=== PATIENT | female | born 1950 | race Caucasian/White ===

== ENCOUNTER 2017-06-27 09:10 | Inpatient (IN) | payer OTHER ==
[2017-06-27] MEDS ORDERED: ASPIRIN 81 MG CHEWABLE TABLET ONE (10:40)
--- NOTE | 2017-06-27 11:00 | EKG ---
Test Date: 2017-06-27 Test Time: 09:55:59 Training And Development Project Leader: TANNER MEASUREMENT RESULTS: Intervals: Rate: 101 GA: 202 QRSD: 84 QT: 330 QTc: 427 Kane: P: 27 GA: 202 QRS: -57 T: 29 INTERPRETIVE STATEMENTS: Sinus tachycardia Left anterior fascicular block Inferior infarct, age undetermined Anterolateral infarct, age undetermined Abnormal ECG Compared to ECG 12/29/2014 08:50:45 Left anterior fascicular block now present Myocardial infarct finding now present Sinus rhythm no longer present Electronically Signed On 06-27-17 10:59:36 CDT by Paulo Barry
[2017-06-27 11:05] LABS: Urine Blood NEGATIVE (NEG); Urine Glucose 2+ (NEG); Urine Protein NEGATIVE (NEG); Urine pH 5.5 (5.0-7.0)
--- NOTE | 2017-06-27 11:09 | RAD REPORT ---
EXAM DESCRIPTION: RAD - Chest Pa And Lat (2 Views) - 06/27/2017 11:01 am CLINICAL HISTORY: Shortness of breath. COMPARISON: 05/08/2011 FINDINGS: The lungs are clear. The heart is upper limit of normal in size. No displaced fractures. IMPRESSION: No acute or concerning finding suspected.
[2017-06-27 11:17] LABS: Absolute Lymphocytes (CBC) 2.8 K/uL (0.7-4.9); Absolute Monocytes 0.7 K/uL (0.1-1.3); Absolute Neutrophil 5.9 K/uL (1.8-8.0); Basophils % 2.6 % (0-1.3); Eosinophils % 3.6 % (0-4.4); Lymphocytes % 27.7 % (15.3-44.8); MCV 89.5 fL (80-100); MPV 7.7 fL (7.6-11.3); Monocytes % 7.1 % (3.3-12.3); RBC Red Blood Cell Count 5.36 M/uL (3.86-4.86)
[2017-06-27 11:24] LABS: Protime INR 1.13
--- NOTE | 2017-06-27 11:29 | RAD REPORT ---
EXAM DESCRIPTION: VAS - Extremity Venous Uni Ltd - 06/27/2017 11:21 am CLINICAL HISTORY: Left calf pain, leg swelling COMPARISON: None. TECHNIQUE: Real-time sonographic evaluation of the left lower extremity deep venous system was perfo rmed. FINDINGS: Echogenic material is present filling the lumen of the left common femoral, superficial fe moral and popliteal veins. The greater saphenous vein and deep posterior tibial vein were compressibl e. The anterior tibial vein was not well visualized due to soft tissue swelling. No mass or abnormal fluid collection seen in the soft tissues. Findings provided to the referring physician at the time of the study. IMPRESSION: Extensive acute deep venous thrombosis involving the common femoral, superficial femoral and popliteal veins. The anterior tibial vein may be thrombosed as well. Greater saphenous vein is clear. Posterior tibial vein also clear.
[2017-06-27 12:24] LABS: ALT/SGPT 20 IU/L (10-60); AST/SGOT 26 IU/L (10-42); Albumin 3.6 g/dL (3.2-5.5); Alkaline Phosphatase 114 IU/L (42-121); Amylase Level 30 U/L (28-100); BUN Blood Urea Nitrogen 10 mg/dL (6-20); Bicarbonate 23 mEq/L (21-31); Bilirubin Direct 0.2 mg/dL (0-0.2); CKMB Creatine Kinase MB 1.4 ng/ml (0.3-4.0); Creatine Phosphokinase 38 IU/L (22-269); Glucose Level 378 mg/dL (65-120); Lipase 23 U/L (22-51); Magnesium 1.8 mg/dL (1.8-2.5); Protein, Total 7.5 g/dL (6.0-8.3); Sodium Level 135 mEq/L (135-145)
[2017-06-27] MEDS ORDERED: NA CHLORIDE 0.9% 1,000 ML ONE (12:51)
--- NOTE | 2017-06-27 13:19 | RAD REPORT ---
EXAM DESCRIPTION: CT - Chest For Pe Angio - 06/27/2017 1:05 pm CLINICAL HISTORY: Shortness of breath, leg pain, positive DVT study COMPARISON: Chest films same date, ultrasound same date TECHNIQUE: Dynamically enhanced 3 mm thick images of the chest were obtained during administration o f approximately 150mL Isovue 370 IV contrast. Coronal and oblique reconstruction images were generate d and reviewed. Exam utilizes a protocol to evaluate the pulmonary arterial tree. All CT scans are performed using dose optimization technique as appropriate and may include automated exposure control or mA/KV adjustment according to patient size. FINDINGS: Multiple pulmonary emboli are present. Multiple segmental branch pulmonary emboli present in the left upper lobe. Moderate-sized pulmonary embolism is present at the left lower lobe pulmonary artery bifurcation into the segmental branches. There is a large pulmonary embolism filling much of the distal right main pulmonary artery extending into the right upper lobe and right lower lobe pulmo nary arteries. There is right middle lobe pulmonary artery embolism as well. Right lower lobe embolis m extends into the origin of segmental branches. No saddle embolus is present. There is no pulmonary hemorrhage or focal lung parenchymal process. The aorta as imaged shows no acute or suspicious finding. No pericardial thickening or effusion. No infiltrate or mass in the lung parenchyma. No pleural effusion or pleural thickening. No mediastinal or hilar suspicious masses. No chest wall masses or abnormal axillary lymphadenopathy. IMPRESSION: Extensive pulmonary embolic disease involving the right main and right lobar arteries as well as the right lower lobe segmental arteries. Left upper and left lower lobar and segmental branc h emboli also present. No pulmonary hemorrhage or acute lung parenchymal process.
[2017-06-27] MEDS ORDERED: ONDANSETRON 4 MG/2 ML VIAL IV PRN (13:40)
[2017-06-27] MEDS ORDERED: GLUCAGON 1 MG/VIAL IM PRN ×2 (13:42→20:02)
[2017-06-27] MEDS ORDERED: D50W 25 GM/50 ML SYRINGE IV PRN ×2 (13:42→20:02)
--- NOTE | 2017-06-27 13:43 | EDPHYS ---
Physician Documentation [facility] Name: Candace Conley Age: 66 yrs Sex: Female : 1950 Arrival Date: 06/27/2017 Time: 09:14 Bed 13 Private MD: Meena Resendiz K ED Physician Johnnie Bryant HPI: 06/27 10:29 This 66 yrs old Female presents to ER via Wheelchair with complaints of Leg wa Pain, Shortness Of Breath. 10:29 The patient presents with pain, that is acute, swelling, tenderness. The complaints wa affect the left calf. Context: The problem was sustained at home, resulted from an unknown cause, the patient can fully bear weight, the patient is able to ambulate, without difficulty, Problem is a result from a previous injury: L knee injury many years ago. Onset: The symptoms/episode began/occurred 1 week(s) ago. Modifying factors: The symptoms are alleviated by nothing. the symptoms are aggravated by nothing. Associated signs and symptoms: Pertinent positives: calf tenderness, swelling, c/o SOB with minimal exertion with assoc chest pain x same duration of 1 week. Treatment prior to arrival includes: no previous treatment. Severity of symptoms: At their worst the symptoms were moderate, in the emergency department the symptoms are unchanged. The patient has not experienced similar symptoms in the past. The patient has been recently seen by a physician: the patient's primary care provider, referred here for r/o DVT. Historical: - Allergies: 09:58 NKA; iw - Home Meds: 09:58 levothyroxine oral [Active]; Victoza 2-Ayan subcutaneous subcutaneous [Active]; iw - PMHx: 09:58 Hypothyroidism; Diabetes - IDDM; iw - PSHx: 09:58 right breast cyst; iw - Immunization history:: Adult Immunizations. - Social history:: Smoking status: Patient/guardian denies using tobacco. - Family history:: not pertinent. - Hospitalizations: : No recent hospitalization is reported. ROS: 10:32 Constitutional: Negative for fever, chills, and weight loss, Eyes: Negative for injury, wa pain, redness, and discharge, ENT: Negative for injury, pain, and discharge, Neck: Negative for injury, pain, and swelling, Abdomen/GI: Negative for abdominal pain, nausea, vomiting, diarrhea, and constipation, Back: Negative for injury and pain, : Negative for injury, bleeding, discharge, and swelling, Skin: Negative for injury, rash, and discoloration, Neuro: Negative for headache, weakness, numbness, tingling, and seizure, Psych: Negative for depression, anxiety, suicide ideation, homicidal ideation, and hallucinations. 10:32 Cardiovascular: Positive for chest pain, Negative for edema, orthopnea, palpitations, paroxysmal nocturnal dyspnea. 10:32 Respiratory: Positive for cough, with no reported sputum, shortness of breath, on exertion. Negative for sputum production, wheezing. 10:32 MS/extremity: Positive for pain, swelling, tenderness, of the left calf. 10:32 All other systems are negative. Exam: 10:33 Constitutional: This is a well developed, well nourished patient who is awake, alert, wa and in no acute distress. Head/Face: Normocephalic, atraumatic. Eyes: Pupils equal round and reactive to light, extra-ocular motions intact. Lids and lashes normal. Conjunctiva and sclera are non-icteric and not injected. Cornea within normal limits. Periorbital areas with no swelling, redness, or edema. ENT: Nares patent. No nasal discharge, no septal abnormalities noted. Tympanic membranes are normal and external auditory canals are clear. Oropharynx with no redness, swelling, or masses, exudates, or evidence of obstruction, uvula midline. Mucous membranes moist. Neck: Trachea midline, no thyromegaly or masses palpated, and no cervical lymphadenopathy. Supple, full range of motion without nuchal rigidity, or vertebral point tenderness. No Meningismus. Chest/axilla: Normal chest wall appearance and motion. Nontender with no deformity. No lesions are appreciated. Abdomen/GI: Soft, non-tender, with normal bowel sounds. No distension or tympany. No guarding or rebound. No evidence of tenderness throughout. Back: No spinal tenderness. No costovertebral tenderness. Full range of motion. Skin: Warm, dry with normal turgor. Normal color with no rashes, no lesions, and no evidence of cellulitis. Neuro: Awake and alert, GCS 15, oriented to person, place, time, and situation. Cranial nerves II-XII grossly intact. Motor strength 5/5 in all extremities. Sensory grossly intact. Cerebellar exam normal. Normal gait. Psych: Awake, alert, with orientation to person, place and time. Behavior, mood, and affect are within normal limits. 10:33 Cardiovascular: Rate: normal, Rhythm: regular, Pulses: no pulse deficits are appreciated, Heart sounds: normal, Edema: is not appreciated, JVD: is not appreciated. 10:33 Respiratory: the patient does not display signs of respiratory distress, Respirations: normal, Breath sounds: are clear throughout, Respiratory rate: mild tachypnea noted Vital Signs: 09:59 BP 124 / 98; Pulse 99; Resp 22 S; Temp 97.4(TE); Pulse Ox 97% ; Weight 127.91 kg; iw Height 5 ft. 5 in. (165.10 cm); Pain 3/10; 11:36 BP 130 / 79; Pulse 87; Resp 18; Pulse Ox 97% on R/A; em 12:30 BP 126 / 81; Pulse 81; Resp 18; Pulse Ox 95% on R/A; Pain 4/10; em 13:30 BP 135 / 76; Pulse 84; Resp 19; Pulse Ox 95% on R/A; Pain 0/10; em 14:30 BP 130 / 67; Pulse 86; Resp 20; Pulse Ox 96% on R/A; em 15:40 BP 124 / 78; Pulse 85; Resp 21; Temp 98.2; Pulse Ox 98% on 2 lpm NC; Pain 0/10; em 09:59 Body Mass Index 46.93 (127.91 kg, 165.10 cm) iw MDM: 10:08 Patient medically screened. ky 10:33 Differential diagnosis: r/o DVT. r/o ACS. r/o PE. Data reviewed: vital signs, nurses wa notes. Test interpretation: by ED physician or midlevel provider: EKG: HR 96. noted ST depressions inferior-laterally. 13:34 Test interpretation: by ED physician or midlevel provider: labs noted for wa hyperglycemia. L LE DVT involving common femoral, superficial femoral, and popliteal vein. CT chest noted for bilateral pulmonary emboli. Response to treatment: the patient's symptoms have markedly improved after treatment. Physician consultation: Ti Montalvo MD was called at 13:35. Admission orders: after a detailed discussion of the patient's condition and case, the admit orders are written by me. 06/27 10:24 Order name: BMP; Complete Time: 12:39 ky 06/27 10:24 Order name: BNP; Complete Time: 11:55 ky 06/27 10:24 Order name: CBC with Diff; Complete Time: :55 ky 06/27 10:24 Order name: Hepatic Function; Complete Time: 12:39 ky 06/27 10:24 Order name: Magnesium; Complete Time: 12:40 ky 06/27 10:24 Order name: PT-INR; Complete Time: :55 ky 06/27 10:24 Order name: Ptt, Activated; Complete Time: :55 ky 06/27 10:24 Order name: Troponin (emerg Dept Use Only); Complete Time: 11:06/27 10:24 Order name: Amylase, Serum; Complete Time: 12:39 ky 06/27 10:24 Order name: Ckmb; Complete Time: 12:40 ky 06/27 10:24 Order name: CPK; Complete Time: 12:40 ky 06/27 10:24 Order name: Lipase; Complete Time: 12:40 ky 06/27 10:56 Order name: Urine Dipstick--Ancillary (enter results); Complete Time: 11:55 06/27 13:47 Order name: Basic Metabolic Panel EDMA 06/27 10:15 Order name: EKG Electrocardiogram EDMA 06/27 10:24 Order name: XRAY Chest Pa And Lat (2 Views); Complete Time: 11:55 ky 06/27 10:24 Order name: Cardiac monitoring; Complete Time: 11: ky 06/27 10:24 Order name: EKG - Nurse/Tech; Complete Time: 11: ky 06/27 10:24 Order name: IV Saline Lock; Complete Time: 11: ky 06/27 10:24 Order name: Labs collected and sent; Complete Time: 11: ky 06/27 10:24 Order name: CT Chest For PE Angio ky 06/27 10:25 Order name: US Extremity Venous Uni Ltd; Complete Time: 11:56 ky 06/27 13:47 Order name: Carb Control (ADA) 1800 Bean EDMS 06/27 13:47 Order name: Basic Metabolic Panel EDMS 06/27 13:47 Order name: CBC with Automated Diff EDMS 06/27 13:47 Order name: CBC with Automated Diff EDMS 06/27 10:24 Order name: O2 Per Protocol; Complete Time: : ky 06/27 10:24 Order name: O2 Sat Monitoring; Complete Time: ky 06/27 10:24 Order name: Urine Dipstick-Ancillary (obtain specimen); Complete Time: ky 06/27 10:24 Order name: NPO; Complete Time: 10:32 wa Administered Medications: 10:51 Not Given (Physician Discretion): Aspirin Chewable Tablet 324 mg PO once; 81 mg tablets iw x 4 13:35 Drug: NS 0.9% 1000 ml Route: IV; Rate: 1 bolus; Site: right antecubital; em 14:41 Follow up: IV Status: Completed infusion; IV Intake: 1000ml em 14:00 Drug: Lovenox 1 mg/kg {Note: administered 120mg per Dr. Bryant.} Route: Sub-Q; Site: em abdomen; 14:41 Follow up: Response: No adverse reaction em Disposition: 06/27/17 13:38 Hospitalization ordered by Ti Montalvo for Inpatient Admission. Preliminary diagnosis are Acute Shortness of Breath, Acute Bilateral Pulmonary Emboli, Acute L Lower Extremity Deep Vein Thrombosis. - Bed requested for Telemetry/MedSurg (Inpatient). - Status is Inpatient Admission. iw - Condition is Stable. - Problem is new. - Symptoms have improved. UTI on Admission? No Signatures: Dispatcher [employer] EDSherwin Peterson, PARAPROFESSIONAL AIDE PARAPROFESSIONAL AIDE em Paty Delcid, Bonita Shay RN, William, MD MD ky Corrections: (The following items were deleted from the chart) 15:26 13:38 Hospitalization Ordered by Ti Montalvo MD for Inpatient Admission. Preliminary ag diagnosis is Acute Shortness of Breath; Acute Bilateral Pulmonary Emboli; Acute L Lower Extremity Deep Vein Thrombosis. Bed requested for Telemetry/MedSurg (Inpatient). Status is Inpatient Admission. Condition is Stable. Problem is new. Symptoms have improved. UTI on Admission? No. ky 16:09 15:26 06/27/2017 13:38 Hospitalization Ordered by Ti Montalvo MD for Inpatient iw Admission. Preliminary diagnosis is Acute Shortness of Breath; Acute Bilateral Pulmonary Emboli; Acute L Lower Extremity Deep Vein Thrombosis. Bed requested for Telemetry/MedSurg (Inpatient). Status is Inpatient Admission. Condition is Stable. Problem is new. Symptoms have improved. UTI on Admission? No. ag
--- NOTE | 2017-06-27 13:43 | ER ---
Nurse's Notes [facility] Name: Candace Conley Age: 66 yrs Sex: Female : 1950 Arrival Date: 06/27/2017 Time: 09:14 Bed 13 Private MD: Meena Resendiz K Diagnosis: Acute Shortness of Breath;Acute Bilateral Pulmonary Emboli;Acute L Lower Extremity Deep Vein Thrombosis Presentation: 06/27 09:55 Presenting complaint: Patient states: was sent by PCP for probable DVT to left leg, iw pain to left calf X 1 week, and also pain to chest X 1 week, and SOB. Transition of care: patient was not received from another setting of care. Onset of symptoms was June 19, 2017. Initial Sepsis Screen: Does the patient meet any 2 criteria? No. Patient's initial sepsis screen is negative. Does the patient have a suspected source of infection? No. Patient's initial sepsis screen is negative. Care prior to arrival: None. 09:55 Method Of Arrival: Wheelchair iw 09:55 Acuity: REBECCA 3 iw 13:27 Acuity: REBECCA 2 iw Triage Assessment: 10:30 General: Appears in no apparent distress. comfortable, Behavior is calm, cooperative. em Respiratory: Onset: The symptoms/episode began/occurred about 1 week ago, the patient has mild shortness of breath. Respiratory: Airway is patent Respiratory effort is even, unlabored, Respiratory pattern is regular, symmetrical. 10:30 Respiratory: Breath sounds are clear bilaterally. em Historical: - Allergies: 09:58 NKA; iw - Home Meds: 09:58 levothyroxine oral [Active]; Victoza 2-Ayan subcutaneous subcutaneous [Active]; iw - PMHx: 09:58 Hypothyroidism; Diabetes - IDDM; iw - PSHx: 09:58 right breast cyst; iw - Immunization history:: Adult Immunizations. - Social history:: Smoking status: Patient/guardian denies using tobacco. - Family history:: not pertinent. - Hospitalizations: : No recent hospitalization is reported. Screenin:37 Abuse screen: Denies threats or abuse. Nutritional screening: No deficits noted. em Tuberculosis screening: No symptoms or risk factors identified. Fall Risk None identified. Assessment: 10:28 General: Appears in no apparent distress. comfortable, Behavior is calm, cooperative, em Reports chest pain with SOB on exertion and left calf pain that has been there for a week, sent over by PCP. 10:28 Pain: Complains of pain in left calf. Neuro: Level of Consciousness is awake, alert, em obeys commands, Oriented to person, place, time, situation. Cardiovascular: Heart tones S1 S2 present Capillary refill < 3 seconds Patient's skin is warm and dry. Rhythm is regular. Respiratory: Reports shortness of breath on exertion Airway is patent Respiratory effort is even, unlabored, Breath sounds are clear bilaterally. GI: Abdomen is round. : Urine is clear. EENT: No signs and/or symptoms were reported regarding the EENT system. Derm: Skin is intact, Skin is pink, warm \T\ dry. Musculoskeletal: Range of motion: intact in all extremities. 10:35 Reassessment: Patient appears in no apparent distress at this time. I agree with above iw assessment by Sherwin Haas LVN. 11:30 Reassessment: Patient appears in no apparent distress at this time. Patient and/or em family updated on plan of care and expected duration. Pain level reassessed. Patient is alert, oriented x 3, equal unlabored respirations, skin warm/dry/pink. family member at bedside, resting comfortably. 12:30 Reassessment: Patient appears in no apparent distress at this time. Patient and/or em family updated on plan of care and expected duration. Pain level reassessed. Patient is alert, oriented x 3, equal unlabored respirations, skin warm/dry/pink. 13:30 Reassessment: pt placed on strict bed rest per Dr. Bryant, Dr. Bryant at bedside em discussing POC. 14:05 Reassessment: Patient appears in no apparent distress at this time. Patient and/or em family updated on plan of care and expected duration. Pain level reassessed. Patient is alert, oriented x 3, equal unlabored respirations, skin warm/dry/pink. pt eating lunch, awaiting room assignment Patient states feeling better. 15:15 Reassessment: Patient appears in no apparent distress at this time. Patient and/or em family updated on plan of care and expected duration. Pain level reassessed. Patient is alert, oriented x 3, equal unlabored respirations, skin warm/dry/pink. Patient states feeling better. Vital Signs: 09:59 BP 124 / 98; Pulse 99; Resp 22 S; Temp 97.4(TE); Pulse Ox 97% ; Weight 127.91 kg; iw Height 5 ft. 5 in. (165.10 cm); Pain 3/10; 11:36 BP 130 / 79; Pulse 87; Resp 18; Pulse Ox 97% on R/A; em 12:30 BP 126 / 81; Pulse 81; Resp 18; Pulse Ox 95% on R/A; Pain 4/10; em 13:30 BP 135 / 76; Pulse 84; Resp 19; Pulse Ox 95% on R/A; Pain 0/10; em 14:30 BP 130 / 67; Pulse 86; Resp 20; Pulse Ox 96% on R/A; em 15:40 BP 124 / 78; Pulse 85; Resp 21; Temp 98.2; Pulse Ox 98% on 2 lpm NC; Pain 0/10; em 09:59 Body Mass Index 46.93 (127.91 kg, 165.10 cm) iw ED Course: 09:14 Patient arrived in ED. rg4 09:14 Meena Resendiz MD is Private Physician. rg4 09:57 Triage completed. iw 09:59 Arm band placed on. iw 10:08 Johnnie Bryant MD is Attending Physician. wa 10:12 EKG done, by biological technician. reviewed by Johnnie Bryant MD. at1 10:32 Sherwin Haas LVN is Primary Nurse. em 10:37 Patient has correct armband on for positive identification. Placed in gown. Bed in low em position. Call light in reach. Side rails up X2. 10:38 No provider procedures requiring assistance completed. em 10:45 Note: x ray delayed pt is in restroom. sw 10:53 X-ray completed. Patient tolerated procedure well. Patient moved to radiology via 1 wheelchair. Patient moved back from radiology. 10:54 XRAY Chest Pa And Lat (2 Views) In Process Unspecified. EDMS 11:08 Initial lab(s) drawn, by me, sent to lab. Urine collected: clean catch specimen, clear. em Inserted saline lock: 20 gauge in right antecubital area, using aseptic technique. Blood collected. 11:19 Ultrasound completed. Patient tolerated well. aa4 11:20 US Extremity Venous Uni Ltd In Process Unspecified. EDMS 11:43 Radiology exam delayed due to lab results not completed at this time. (BUN/Creatinine). vr 13:05 CT Chest For PE Angio In Process Unspecified. EDMS 13:37 Ti Montalvo MD is Hospitalizing Provider. ok 16:05 Patient admitted, IV remains in place. em Administered Medications: 10:51 Not Given (Physician Discretion): Aspirin Chewable Tablet 324 mg PO once; 81 mg tablets iw x 4 13:35 Drug: NS 0.9% 1000 ml Route: IV; Rate: 1 bolus; Site: right antecubital; em 14:41 Follow up: IV Status: Completed infusion; IV Intake: 1000ml em 14:00 Drug: Lovenox 1 mg/kg {Note: administered 120mg per Dr. Bryant.} Route: Sub-Q; Site: em abdomen; 14:41 Follow up: Response: No adverse reaction em Intake: 14:41 IV: 1000ml; Total: 1000ml. em Outcome: 13:38 Decision to Hospitalize by Provider. ok 16:05 Admitted to Med/surg accompanied by nurse, accompanied by tech, via stretcher, room em 224, with oxygen, with chart, Report called to YUDY Maldonado 16:05 Condition: good 16:05 Discharge instructions given to patient, Instructed on the need for admit, Demonstrated em understanding of instructions. 16:09 Patient left the ED. Signatures: Dispatcher [employer] EDMS Martha Cope mh1 Sherwin Haas, ART STUDIO TEACHER ART STUDIO TEACHER em Paty Delcid, RN RN Nena Mirza aa4 Isabell Al vr Nena alcala, crinkling machine operator EKG Tat1 Hoa Clark Rubi rg4 Johnnie Bryant MD MD ok
[2017-06-27] MEDS ORDERED: ENOXAPARIN 80 MG/0.8 ML SQ ONE (13:50)
[2017-06-27] MEDS ORDERED: ENOXAPARIN 40 MG/0.4 ML SQ ONE (13:51)
--- NOTE | 2017-06-27 18:45 | P.HP ---
Certification for Inpatient Patient admitted to: Observation With expected LOS: <2 Midnights Practitioner: I am a practitioner with admitting privileges, knowledge of patient current condition, hospital course, and medical plan of care. Services: Services provided to patient in accordance with Admission requirements found in Title 42 Section 412.3 of the Code of Federal Regulations Patient History Date of Service: 06/27/17 Reason for admission: LEG PAIN AND CHESTPAIN History of Present Illness: MS JACOB GOES TO DR URIARTE, CLAIMED ME TO BE HER DOCTOR IN ER. SHE HAS HAD LEG PAIN FOR TWO WEEKS AND NOW PAIN HAS GONE TO CHEST. HER SONOGRAM SHOWS DVT AND CHEST SCAN SHOWS EXTENSIVE PE. Allergies No Known Allergies Allergy (Verified 12/29/14 08:37) Home Medications: Levothyroxine [Synthroid] 50 mcg PO [id number] 12/29/14 Aspirin Tab [Ayah Aspirin] 650 mg PO Q6HR PRN 06/27/17 Liraglutide [Victoza 2-Ayan] 0.6 mg SQ 30 MIN BEFORE HS 06/27/17 - Past Medical/Surgical History Has patient received pneumonia vaccine in the past: No Diabetic: Yes -: IDDM -: Hypothyroidism -: breast cyst removal - Social History Smoking Status: Never smoker Alcohol use: No CD- Drugs: No Caffeine use: No Place of Residence: Home Review of Systems 10-point ROS is otherwise unremarkable Musculoskeletal: Other (NOT ABLE TO MOVE L KNEE WELL. ) Physical Examination - Vital Signs Temperature: 96.9 F Blood Pressure: 129/63 Pulse: 83 Respirations: 16 Pulse Ox (%): 97 - Physical Exam General: Alert, In no apparent distress, Obese HEENT: Atraumatic, PERRLA, Mucous membr. moist/pink, EOMI, Sclerae nonicteric Neck: Supple, 2+ carotid pulse no bruit, No LAD, Without JVD or thyroid abnormality Respiratory: Clear to auscultation bilaterally, Normal air movement Cardiovascular: Regular rate/rhythm, Normal S1 S2 Gastrointestinal: Normal bowel sounds, No tenderness Musculoskeletal: Other (LARGE MASS L THIGH. ) Integumentary: No rashes Neurological: Normal gait, Normal speech, Normal strength at 5/5 x4 extr, Normal tone, Normal affect Lymphatics: No axilla or inguinal lymphadenopathy - Studies Laboratory Data (last 24 hrs) 06/27/17 11:10: PT 13.4 H, INR 1.13, APTT 27.8 05/03/18 11:10: WBC 10.0, Hgb 16.1 H, Hct 48.0 H, Plt Count 300 06/27/17 11:10: B-Natriuretic Peptide 18 06/27/17 11:10: Sodium 135, Potassium 4.0, BUN 10, Creatinine 0.60, Glucose 378 H, Magnesium 1.8, Total Bilirubin 1.0, AST 26, ALT 20, Alkaline Phosphatase 114 , Amylase 30, Lipase 23 Assessment and Plan - Problems (Diagnosis) (1) Pulmonary embolism Current Visit: Yes Status: Acute Plan: THIS FROM SEDENTARY STATUS OF NOT BEING ABLE TO WALK FOR 2 YEARS. SO FAR SHE IS ON LOVENOX. I HOPING TO GET HER ON NOAC THERAPY. HSER L THIGH MASS CAN BE REASON FOR HYERCOAGUBLE STATUS. (2) Mass of left thigh Current Visit: Yes Status: Chronic Plan: GRADUALLY WORSE, LARGER NO BX DONE MAY HAVE SARCAOMA HERE. (3) Diabetes Current Visit: Yes Status: Chronic Plan: GOES TO DR. URIARTE LAST TIME I SAW HER WAS 6 YAEARS AGO. CHECK A1C NOT CONTROLLED SO FAR. Qualifiers: Diabetes mellitus type: type 2 - Advance Directives Does patient have a Living Will: No Does patient have a Durable POA for Healthcare: No
[2017-06-27] MEDS: Enoxaparin 120 MG/0.8 ML SYR SQ SCH (21:11)
[2017-06-27] MEDS: INSULIN -REGULAR HUMAN 50 UNIT/0.5 ML ML SQ SCH (21:11)
[2017-06-27] MEDS: ACETAMINOPHEN 500 MG TAB PO PRN (21:23)
[2017-06-28 04:25] LABS: Urine Appearance CLEAR; Urine Bilirubin NEGATIVE (NEG); Urine Blood 1+ (NEG); Urine Color YELLOW; Urine Glucose 3+ (NEG); Urine Protein NEGATIVE (NEG); Urine Specific Gravity >=1.030 (1.005-1.030); Urine Urobilinogen 0.2 mg/dL (0.2-1.0)
[2017-06-28 04:28] LABS: Urine Microscopic Reflex ORDER UMIC
[2017-06-28 04:50] LABS: Urine Bacteria <20 /HPF (<20); Urine Culture Reflex Order NOT NEEDED; Urine Yeast PRESENT (NONE SEEN)
[2017-06-28 06:46] LABS: Absolute Lymphocytes (CBC) 2.3 K/uL (0.7-4.9); Absolute Monocytes 0.6 K/uL (0.1-1.3); Absolute Neutrophil 3.5 K/uL (1.8-8.0); Basophils % 1.2 % (0-1.3); Eosinophils % 5.2 % (0-4.4); Hematocrit 43.2 % (36.0-45.0); Lymphocytes % 33.5 % (15.3-44.8); MCH 30.5 pg (27.0-35.0); MCV 90.5 fL (80-100); MPV 7.8 fL (7.6-11.3); Monocytes % 8.7 % (3.3-12.3); RBC Red Blood Cell Count 4.77 M/uL (3.86-4.86)
[2017-06-28 06:53] LABS: BUN Blood Urea Nitrogen 12 mg/dL (6-20); Bicarbonate 25 mEq/L (21-31); Glucose Level 348 mg/dL (65-120); Potassium 4.3 mEq/L (3.6-5.0); Sodium Level 136 mEq/L (135-145)
[2017-06-28] MEDS: Enoxaparin 120 MG/0.8 ML SYR SQ SCH ×2 (09:14→21:40)
[2017-06-28] MEDS: GLIMEPIRIDE 2 MG TABLET PO SCH (09:14)
[2017-06-28] MEDS: METFORMIN HCL 500 MG TAB PO SCH ×2 (09:15→18:20)
[2017-06-28] MEDS: INSULIN -REGULAR HUMAN 50 UNIT/0.5 ML ML SQ SCH ×4 (09:15→21:00)
[2017-06-28] MEDS: ACETAMINOPHEN 500 MG TAB PO PRN ×2 (09:18→21:40)
[2017-06-28 10:03] LABS: A1c Component 1.6 mg/dL; Hemoglobin A1c 12.1 % (4-6.0)
--- NOTE | 2017-06-28 10:36 | RAD REPORT ---
EXAM DESCRIPTION: MRI - Femur Left W/Wo Cont - 06/28/2017 9:11 am CLINICAL HISTORY: Left leg pain and swelling. TECHNIQUE: Axial, sagittal and coronal magnetic resonance imaging of the upper left leg were obtaine d. Images were obtained from the thigh to above the knee. 20 mL MultiHance was administered intraveno usly. COMPARISON: June 27, 2017 ultrasound. FINDINGS: Acute thrombus is seen within the left superficial femoral and popliteal veins. T2 weighted sequences demonstrate increased signal within the adjacent musculature of the posterior c ompartment. A soft tissue mass is not visualized. The left femur demonstrates normal signal. IMPRESSION: 1. Acute thrombus within the left superficial femoral and left popliteal veins. 2. Abnormal signal within the musculature of the posterior compartment probably indicates a myositis.
[2017-06-28] MEDS ORDERED: D50W 25 GM/50 ML SYRINGE IV PRN (13:33)
[2017-06-28] MEDS ORDERED: GLUCAGON 1 MG/VIAL IM PRN (13:33)
--- NOTE | 2017-06-28 13:53 | P.PN ---
Subjective Date of Service: 06/28/17 Chief Complaint: LEG PAIN AND CHESTPAIN Subjective: Improving (NO CHEST PAIN, NO NAUSEA.) Review of Systems 10-point ROS is otherwise unremarkable Physical Examination - Vital Signs Temperature: 97.4 F Blood Pressure: 126/65 Pulse: 81 Respirations: 18 Pulse Ox (%): 94 - Physical Exam General: Alert, In no apparent distress, Obese HEENT: Atraumatic, PERRLA, EOMI Neck: Supple, JVD not distended Respiratory: Clear to auscultation bilaterally, Normal air movement Cardiovascular: Regular rate/rhythm, Normal S1 S2 Gastrointestinal: Normal bowel sounds, No tenderness Musculoskeletal: Other (L THIGH EDEMA, NO PAINN ) Integumentary: No rashes Neurological: Normal speech, Normal tone, Normal affect Lymphatics: No axilla or inguinal lymphadenopathy - Studies Medications List Reviewed: Yes Assessment And Plan - Current Problems (Diagnosis) (1) Pulmonary embolism Current Visit: Yes Status: Acute Plan: THIS FROM SEDENTARY STATUS OF NOT BEING ABLE TO WALK FOR 2 YEARS. SO FAR SHE IS ON LOVENOX. I HOPING TO GET HER ON NOAC THERAPY. HSER L THIGH MASS CAN BE REASON FOR HYERCOAGUBLE STATUS. WE ARE TRYING TO FIND WHAT CAN BE PAID FOR HER THERAPY. IF NO CHOICE SHE WILL BE ON WARFARIN. SHE BEING SEDENTARY AND HAVING UNPROVOKED DVT, SHOUL BE ON LIFETIME AC. (2) Mass of left thigh Current Visit: Yes Status: Chronic Plan: GRADUALLY WORSE, LARGER NO BX DONE MAY HAVE SARCAOMA HERE. MRI DOES NOT SHOW MASS BUT A LOT OF EDEMA. (3) Diabetes Current Visit: Yes Status: Chronic Plan: GOES TO DR. URIARTE LAST TIME I SAW HER WAS 6 YAEARS AGO. CHECK A1C NOT CONTROLLED SO FAR. START LEVEMIR BID SHE HAS BEEN NON COMPLIANT WITH HER THERAPY. SHE DOES NOT GO TO [facility]. Qualifiers: Diabetes mellitus type: type 2
[2017-06-28] MEDS: WARFARIN SODIUM 5 MG TAB PO SCH (17:00)
[2017-06-28] MEDS: INSULIN DETEMIR 100 UNIT/1 ML INSULIN SQ SCH (18:20)
[2017-06-29 06:07] LABS: Protime INR 1.13
[2017-06-29] MEDS: INSULIN -REGULAR HUMAN 50 UNIT/0.5 ML ML SQ SCH ×4 (09:24→21:26)
[2017-06-29] MEDS: Enoxaparin 120 MG/0.8 ML SYR SQ SCH ×2 (09:25→20:27)
[2017-06-29] MEDS: METFORMIN HCL 500 MG TAB PO SCH ×2 (09:25→17:01)
[2017-06-29] MEDS: GLIMEPIRIDE 2 MG TABLET PO SCH (09:25)
[2017-06-29] MEDS: INSULIN DETEMIR 100 UNIT/1 ML INSULIN SQ SCH ×2 (09:25→17:02)
--- NOTE | 2017-06-29 12:34 | P.PN ---
Subjective Date of Service: 06/29/17 Chief Complaint: LEG PAIN Subjective: Improving (SHE IS DOING A LOT BETTER BUT STILL PAIN IN L LEG) Review of Systems 10-point ROS is otherwise unremarkable Musculoskeletal: As per HPI (NOT WALKING WELL FOR MONTHS SHE HAS L KNEE PAIN. ) Physical Examination - Vital Signs Temperature: 97.3 F Blood Pressure: 135/72 Pulse: 73 Respirations: 18 Pulse Ox (%): 97 - Physical Exam General: Alert, Mild distress, Obese HEENT: Atraumatic, PERRLA, EOMI Neck: Supple, JVD not distended Respiratory: Clear to auscultation bilaterally, Normal air movement Cardiovascular: Regular rate/rhythm, Normal S1 S2 Gastrointestinal: Normal bowel sounds, No tenderness Musculoskeletal: No tenderness Integumentary: No rashes Neurological: Normal speech, Normal tone, Normal affect Lymphatics: No axilla or inguinal lymphadenopathy - Studies Medications List Reviewed: Yes Assessment And Plan - Current Problems (Diagnosis) (1) Pulmonary embolism Current Visit: Yes Status: Acute Plan: THIS FROM SEDENTARY STATUS OF NOT BEING ABLE TO WALK FOR 2 YEARS. SO FAR SHE IS ON LOVENOX. I HOPING TO GET HER ON NOAC THERAPY. HSER L THIGH MASS CAN BE REASON FOR HYERCOAGUBLE STATUS. WE ARE TRYING TO FIND WHAT CAN BE PAID FOR HER THERAPY. IF NO CHOICE SHE WILL BE ON WARFARIN. SHE BEING SEDENTARY AND HAVING UNPROVOKED DVT, SHOUL BE ON LIFETIME AC. I AM WAITING FOR LOVENOX ALICEA NOW XARELTO AND ELIQUIS BOTH ARE TOO COSTLY FOR HER TO AFFORD. (2) Mass of left thigh Current Visit: Yes Status: Chronic Plan: GRADUALLY WORSE, LARGER NO BX DONE MAY HAVE SARCAOMA HERE. MRI DOES NOT SHOW MASS BUT A LOT OF EDEMA. RULED OUT (3) Diabetes Current Visit: Yes Status: Chronic Plan: GOES TO DR. URIARTE LAST TIME I SAW HER WAS 6 YAEARS AGO. CHECK A1C NOT CONTROLLED SO FAR. START LEVEMIR BID SHE HAS BEEN NON COMPLIANT WITH HER THERAPY. SHE DOES NOT GO TO [facility]. LEVEMIR STARTED SHE SHOULD BE GOING TO DOCTOR [facility] FOR DM. SHE IS TOLD SO. Qualifiers: Diabetes mellitus type: type 2 Diabetes mellitus retirement insulin use: without intermediate school teacher use Diabetes mellitus complication status: without complication Qualified Code(s): E11.9 - Type 2 diabetes mellitus without complications
[2017-06-29] MEDS: WARFARIN SODIUM 5 MG TAB PO SCH (17:00)
[2017-06-30 05:26] LABS: Protime INR 1.26
[2017-06-30] MEDS: METFORMIN HCL 500 MG TAB PO SCH ×2 (08:14→16:33)
[2017-06-30] MEDS: INSULIN DETEMIR 100 UNIT/1 ML INSULIN SQ SCH ×2 (08:14→16:33)
[2017-06-30] MEDS: Enoxaparin 120 MG/0.8 ML SYR SQ SCH ×2 (08:14→21:00)
[2017-06-30] MEDS: INSULIN -REGULAR HUMAN 50 UNIT/0.5 ML ML SQ SCH ×4 (08:16→21:00)
[2017-06-30 13:35] LABS: Protein C Antigen 112 % (70-140)
[2017-06-30] MEDS: WARFARIN SODIUM 5 MG TAB PO SCH (16:33)
[2017-06-30] MEDS: ACETAMINOPHEN 500 MG TAB PO PRN (21:35)
--- NOTE | 2017-06-30 22:29 | P.PN ---
Subjective Date of Service: 06/30/17 Chief Complaint: LOT BETTER Subjective: Improving (SHE SAYS PAIN HAS LESSENED) Review of Systems 10-point ROS is otherwise unremarkable Physical Examination - Vital Signs Temperature: 97.3 F Blood Pressure: 145/65 Pulse: 88 Respirations: 18 Pulse Ox (%): 94 - Physical Exam General: Alert, Mild distress, Obese HEENT: Atraumatic, PERRLA, EOMI Neck: Supple, JVD not distended Respiratory: Clear to auscultation bilaterally, Normal air movement Cardiovascular: Regular rate/rhythm, Normal S1 S2 Gastrointestinal: Normal bowel sounds, No tenderness Musculoskeletal: No tenderness Integumentary: No rashes, Other (LEG EDEMA.) Neurological: Normal speech, Normal tone, Normal affect Lymphatics: No axilla or inguinal lymphadenopathy - Studies Medications List Reviewed: Yes Assessment And Plan - Current Problems (Diagnosis) (1) Pulmonary embolism Current Visit: Yes Status: Acute Plan: THIS FROM SEDENTARY STATUS OF NOT BEING ABLE TO WALK FOR 2 YEARS. SO FAR SHE IS ON LOVENOX. I HOPING TO GET HER ON NOAC THERAPY. HSER L THIGH MASS CAN BE REASON FOR HYERCOAGUBLE STATUS. WE ARE TRYING TO FIND WHAT CAN BE PAID FOR HER THERAPY. IF NO CHOICE SHE WILL BE ON WARFARIN. SHE BEING SEDENTARY AND HAVING UNPROVOKED DVT, SHOUL BE ON LIFETIME AC. I AM WAITING FOR LOVENOX ALICEA NOW XARELTO AND ELIQUIS BOTH ARE TOO COSTLY FOR HER TO AFFORD. SO FAR VERY STABLE. I AM WAITING FOR LOVENOX PRICING SHE MAY GO HOME IN AM IF IT IS AFFORDABLE. (2) Mass of left thigh Current Visit: Yes Status: Chronic Plan: GRADUALLY WORSE, LARGER NO BX DONE MAY HAVE SARCAOMA HERE. MRI DOES NOT SHOW MASS BUT A LOT OF EDEMA. RULED OUT (3) Diabetes Current Visit: Yes Status: Chronic Plan: GOES TO DR. URIARTE LAST TIME I SAW HER WAS 6 YAEARS AGO. CHECK A1C NOT CONTROLLED SO FAR. START LEVEMIR BID SHE HAS BEEN NON COMPLIANT WITH HER THERAPY. SHE DOES NOT GO TO [facility]. LEVEMIR STARTED SHE SHOULD BE GOING TO DOCTOR [facility] FOR DM. SHE IS TOLD SO. Qualifiers: Diabetes mellitus type: type 2 Diabetes mellitus snf insulin use: without snf use Diabetes mellitus complication status: without complication Qualified Code(s): E11.9 - Type 2 diabetes mellitus without complications
[2017-07-01 05:34] LABS: Protime INR 1.64
[2017-07-01] MEDS: INSULIN -REGULAR HUMAN 50 UNIT/0.5 ML ML SQ SCH ×2 (07:30→12:28)
[2017-07-01] MEDS: Enoxaparin 120 MG/0.8 ML SYR SQ SCH (09:00)
[2017-07-01] MEDS: INSULIN DETEMIR 100 UNIT/1 ML INSULIN SQ SCH (09:59)
[2017-07-01] MEDS: METFORMIN HCL 500 MG TAB PO SCH (09:59)
--- NOTE | 2017-07-01 21:19 | P.DS ---
Admission Date: 06/27/17 Discharge Date: 07/01/17 Disposition: DC HOME/HOME HEALTH CARE Reason for Admission: LOT BETTER - Problems (1) Pulmonary embolism Onset Date: 07/01/17 Status: Acute (2) Mass of left thigh Onset Date: 07/01/17 Status: Chronic (3) Diabetes Onset Date: 07/01/17 Status: Chronic Qualifiers: Diabetes mellitus type: type 2 Diabetes mellitus trashman insulin use: without trashman use Diabetes mellitus complication status: without complication Qualified Code(s): E11.9 - Type 2 diabetes mellitus without complications Brief History of Present Illness: MS JACOB GOES TO DR URIARTE, CLAIMED ME TO BE HER DOCTOR IN ER. SHE HAS HAD LEG PAIN FOR TWO WEEKS AND NOW PAIN HAS GONE TO CHEST. HER SONOGRAM SHOWS DVT AND CHEST SCAN SHOWS EXTENSIVE PE. MARÍA IS SEDENTARY , DIABETIC LADY WHO COMES WITH L LEG PAIN AND CHEST PAIN. SHE HAS UNPROVOKED PE. SHE CAN'T AFFORD XARELTO OR ELIQUIS. SHE WILL BE ON LIFETIME WARFARIN. SHE LIVES IN [place] AND MAY NOT BE ABLE TO COME TO MY OFFICE. I ADVISED HER TO GET TO DR. WILSON OR [facility] IF NOT AT MY OFFICE TO MANAGE PE AND DVT. Vital Signs/Physical Exam: Temp Pulse Resp BP Pulse Ox 95.7 F L 79 16 122/69 94 07/01/17 12:00 07/01/17 12:00 07/01/17 12:00 07/01/17 12:00 07/01/17 12:00 Laboratory Data at Discharge: WBC 6.9 K/uL (4.3-10.9) D 06/28/17 05:29 Hgb 14.5 g/dL (12.0-15.0) 06/28/17 05:29 Hct 43.2 % (36.0-45.0) 06/28/17 05:29 Plt Count 264 K/uL (152-406) 06/28/17 05:29 PT 19.4 SECONDS (9.5-12.5) H 07/01/17 05:03 INR 1.64 07/01/17 05:03 APTT 27.8 SECONDS (24.3-36.9) 06/27/17 11:10 Sodium 136 mEq/L (135-145) 06/28/17 05:29 Potassium 4.3 mEq/L (3.6-5.0) 06/28/17 05:29 BUN 12 mg/dL (6-20) 06/28/17 05:29 Creatinine 0.58 mg/dL (0.44-1.00) 06/28/17 05:29 Glucose 348 mg/dL (65-120) H 06/28/17 05:29 Magnesium 1.8 mg/dL (1.8-2.5) 06/27/17 11:10 Total Bilirubin 1.0 mg/dL (0.3-1.2) 06/27/17 11:10 AST 26 IU/L (10-42) 06/27/17 11:10 ALT 20 IU/L (10-60) 06/27/17 11:10 Alkaline Phosphatase 114 IU/L (42-121) 06/27/17 11:10 B-Natriuretic Peptide 18 pg/ml (<=100) 06/27/17 11:10 Amylase 30 U/L (28-100) 06/27/17 11:10 Lipase 23 U/L (22-51) 06/27/17 11:10 Home Medications: Levothyroxine [Synthroid] 50 mcg PO [id number] 12/29/14 Aspirin Tab [Ayah Aspirin] 650 mg PO Q6HR PRN 06/27/17 Liraglutide [Victoza 2-Ayan] 0.6 mg SQ 30 MIN BEFORE HS 06/27/17 Enoxaparin Sodium [Lovenox 120 MG INJ] 120 mg SQ BID #14 syr 07/01/17 Insulin Detemir [Levemir Flextouch] 15 unit SQ BID #15 ml 07/01/17 Metformin HCl [Glucophage*] 500 mg PO BIDWM #180 tab 07/01/17 Warfarin Sodium 7.5 mg PO DAILY #30 tablet 07/01/17 New Medications: Enoxaparin Sodium [Lovenox 120 MG INJ] 120 mg SQ BID #14 syr Insulin Detemir [Levemir Flextouch] 15 unit SQ BID #15 ml Metformin HCl [Glucophage*] 500 mg PO BIDWM #180 tab Warfarin Sodium 7.5 mg PO DAILY #30 tablet Patient Discharge Instructions: TAKE INSULIN TWICE A DAY. COME BACK TO OFFICE IN 10 DAYS. IF YOU CAN'T COME TO [facility], GO TO DR. WILSON OR [facility] OR [facility] IN [place]. DO NOT SEE A PA. SEE A DOCTOR. HOME HEALTH WILL DO INR ON YOU TWICE A WEEK. WHEN INR REACHES 2.0 THEN YOU CAN STOP LOVENOX INJECTIONS. YOU ARE SUPPOSED TO TAKE BOTH WARFARIN AND LOVENOX UNTIL THE INR IS 2.0. Followup: Ti Montalvo MD [ACTIVE - CAN ADMIT] - (Follow up in office in 10 days. Call to schedule an appointment.)
== END 2017-07-01 15:55 | disposition home health service (06) | DRG 176 ==
LOC: ER 09:10 → ERHOLD 13:38 → 2ND 15:44
PROVIDERS: ADMIT Internal Medicine; ATTEND Internal Medicine
DX: I26.99 Other pulmonary embolism without acute cor pulmonale (principal); I82.412 Acute embolism and thrombosis of left femoral vein; I82.432 Acute embolism and thrombosis of left popliteal vein; E11.9 Type 2 diabetes mellitus without complications; R22.42 Localized swelling, mass and lump, left lower limb; E03.9 Hypothyroidism, unspecified; Z79.82 Long term (current) use of aspirin
CPT/HCPCS: 36415; 71046; 71275; 80048; 80076; 81003; 81015; 81241; 82150; 82550; 82553; 82962; 83036; 83090; 83690; 83735; 83880; 84484; 85025; 85302; 85305; 85306; 85610; 85730; 86147; 93005; 93971; 96360; 96372; 99285; A9577; J1650; J7030; Q9967